=== PATIENT | female | born 1955 | race Two or more races ===

== ENCOUNTER 2019-04-28 11:16 | Emergency (ER) | payer MEDICARE, MEDICAID ==
[~2019-04-28] VITALS: Ht 165.1 cm; Wt 110.0 kg
--- NOTE | 2019-04-28 12:24 | NUR ---
BIB EMS FOR CO BLOOD IN URINE. PT DENIES ANY PAIN OR BURNING WHILE URINATING. DENIES FLANK OR BACK PAIN. MD AT BEDSIDE DISCUSSIN POC. VS STABLE.
--- NOTE | 2019-04-28 12:32 | NUR ---
GIVEN PT BLANKET. PT SBA TO BSC, UNSTEADY GATE
[2019-04-28 12:46] LABS: MICROSCOPIC INDICATED
[2019-04-28 13:06] LABS: CULTURE INDICATED? YES
--- NOTE | 2019-04-28 13:47 | NUR ---
PT RESTING WATCHING TV. NO NEEDS AT THIS TIME. PLAN FOR CT.
[2019-04-28 13:55] LABS: BASOPHILS # (AUTO) 0.02 x10^3/uL (0-0.1); BASOPHILS % (AUTO) 0 % (0-1); EOSINOPHILS # (AUTO) 0.11 x10^3/uL (0-0.4); EOSINOPHILS % (AUTO) 1 % (1-7); LYMPHOCYTES # (AUTO) 1.51 x10^3/uL (1-3.4); LYMPHOCYTES % (AUTO) 18 % (22-44); MD NO; MEAN CORPUSCULAR HEMOGLOBIN 27.3 pg (27.0-34.8); MEAN CORPUSCULAR HGB CONC 32.1 g/dL (32.4-35.8); MEAN CORPUSCULAR VOLUME 85.1 fL (80-100); MEAN PLATELET VOLUME 8.8 fL (7.4-10.4); MONOCYTES # (AUTO) 0.58 x10^3/uL (0.2-0.8); MONOCYTES % (AUTO) 7 % (2-9); NEUTROPHILS # (AUTO) 6.21 x10^3/uL (1.8-6.8); NEUTROPHILS % (AUTO) 74 % (42-75); PLATELET COUNT 357 x10^3/uL (130-400); RED BLOOD COUNT 4.93 x10^6/uL (3.82-5.3)
[2019-04-28 14:03] LABS: ANION GAP 9 mmol/L (5-15); CHLORIDE 105 mmol/L (98-107); CREATININE 0.78 mg/dL (0.55-1.02)
--- NOTE | 2019-04-28 14:03 | NUR ---
PT REPOSITIONED. PT TO CT. VSS.
[2019-04-28 14:04] VITALS: BP 150/87
--- NOTE | 2019-04-28 14:55 | NUR ---
SBA TO BSC TO VOID. BACK ON [facility], NO OTHER NEEDS AT THIS TIME. CELL PHONE AND CALL LIGHT W PT.
[2019-04-28] MEDS ORDERED: FOSFOMYCIN 3 GM PACKET PO ONE (15:00)
--- NOTE | 2019-04-28 15:00 | NUR ---
MD AT BEDSIDE DISCUSSING POC FOR DC. PT IS CONCERNED SHE CANNOT GO HOME BY HERSELF BECAUSE SHE CANNOT MOVE AROUND EASLY AND IS AFRAID SHE WILL FALL OR CANNOT GET UP. 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
[2019-04-28] MEDS ORDERED: FOSFOMYCIN 3 GM PACKET ONE (15:05)
--- NOTE | 2019-04-28 16:13 | NUR ---
Patient/Caregiver given discharge instructions and they have confirmed that they understand the instructions. Patient wheeled to dc area. family picking up
== END 2019-04-28 16:15 | disposition home or self-care (01) ==
LOC: ED 12:27
DX: R91.1 Solitary pulmonary nodule (principal)
CPT/HCPCS: 36415; 74176; 80048; 81001; 85025; 87086; 99284